=== PATIENT | female | born 1990 | race Two or more races ===

== ENCOUNTER 2020-04-23 08:25 | Inpatient (IN) | payer MEDICAID, SELFPAY ==
[2020-04-23] VITALS (21 sets, daily range): BP systolic 92–123; BP diastolic 54–82; PULSE 84–107; RESP 15–18; TEMP 36.2–37.1; O2SAT 15–100; BMI 29.9
[2020-04-23] MEDS: Lactated Ringers 1,000 ML 999 ML IV (08:40)
[2020-04-23 08:54] LABS: Absolute Neutrophil Count 8.7 X10^3/uL (2.0-7.7); Basophil# 0.04 X10^3/uL; Basophil% 0.4 % (0-1); Eosinophil# 0.05 X10^3/uL; Eosinophils% 0.5 % (0-5); Hemoglobin 11.3 g/dL (12.0-15.0); Lymphocyte % 12.7 % (19-41); Mean Corp Hgb Conc 32.3 g/dL (32-36); Mean Corpuscular Hgb 28.5 pg (27.0-32.0); Mean Corpuscular Volume 88.4 fL (81-99); Mean Platelet Vol. 9.2 fl (6.2-12.0); Monocyte% 6.4 % (0-10); NRBC Flagged by Analyzer 0 % (0-5); Neutrophil # 8.68 X10^3/uL (2.7-7.7); Neutrophil % 78.8 % (47-70); Platelet Count 310 K/mm3 (150-450); RBC Distribution Width CV 13.5 % (11.6-14.6); RBC Distribution Width SD 43.7 fl (35.1-43.9); Red Blood Count 3.96 M/mm3 (4.2-5.4)
--- NOTE | 2020-04-23 09:15 | HP.PCM_ITS ---
History Date of Admission: 04/23/20 Final EMMA: 04/24/20 Final EMMA Source: US <20 weeks Gestational age: 39 Weeks and 6 Days History of this : This is a 29 year-old, avid 2 para 1 who presents at 39-6/7 weeks gestation complaining contractions. She had contractions all night approximately every 7 to 8 minutes. She denies any vaginal bleeding or leaking of fluid. Contractions this morning were every 4 to 5 minutes and some of them were intense enough that she was having trouble walking during them. She arrived to labor and delivery and was found to still be 1 cm. Admits he has been complicated to date by anemia, history of previous section, nausea vomiting of , and history of positive chlamydia test. Surgical history: 1 previous full-term section for true knot in the cord diagnosed antenatally and patient did not undergo labor. This was done elsewhere and records were unable to be obtained but it is likely low transverse and she was a planned . Patient was considering a trial of labor after . Allergies No Known Allergies Allergy (Verified 04/23/20 09:01) Home Medications: Home Medications Ferrous Sulfate [Iron] 325 mg PO 04/23/20 Alcohol: None Number of Fetus(es): 1 NST - FHR Rate Baby A Baseline: normal Variability:: Moderate Accelerations:: 15 x 15 Decelerations:: Late, Variable NST Reactive:: Yes Uterine Activity:: ctxs q 4-6 min History Past Pregnancies: Past Pregnancies Delivery Date Name GA/ Weeks Outcome Route Wt Infant Sex Labor Length Anesthesia Delivery Location Provider FOB Expected Infant Delivery Method: Repeat Section Review of Systems Constitutional: Denies: Chills Eyes: Denies: Blurred vision, Double vision Cardiovascular: Denies: Chest Pain, Edema Respiratory: Denies: Cough, Shortness of Breath Genitourinary: Denies: Dysuria Skin: Denies: Rash Neurological: Denies: Balance problems, Blurred vision, Double vision, Slurred speech Hematologic/ Lymphatic: Reports: Anemia Physical Exam Vitals: Vital Signs Pulse BP 106 H 123/70 H 04/23/20 07:56 04/23/20 07:56 General: Alert, Cooperative, No apparent distress, - - uncomfortable w/ contractions Cardiovascular: Regular rate Lungs: Normal air movement Abdomen: Soft, Non Tender, Non-Distended, Gravid Extremities:: Other - 1+edema Neurological: Cranial nerves II-XII grossly intact, Neuro grossly intact SEROLOGY TECHNICIAN: Normal external genitalia Estimated gestational size: Appropriate for gestational size Presentation: Cephalic Assessment/Plan This is a 29 year-old, 2 para 1 with history of previous section, undocumented previous incision. However, clinically is likely a previous low transverse section. Patient was having some late and variable decelerations upon admission to labor and delivery. She is found to be in very early prodromal labor. Risk benefits and alternatives to trial of labor versus repeat section and possible blood transfusion were discussed with the patient and her . Their questions were answered to their satisfaction and she would like to proceed with section. Consent was signed.
[2020-04-23] MEDS: Sodium Citrate/Citric Acid 30 ML UDC PO (09:20)
[2020-04-23] MEDS: Cefazolin 2 GM in 0.9% Normal Saline 100 ML IV (09:41)
--- NOTE | 2020-04-23 10:28 | PCM.OPRPT ---
Delivery Classification: YUNG Final EMMA: 04/24/20 Final EMMA Source: US <20 weeks Gestational age: 39 Weeks and 6 Days special investigation unit investigator: Sindi Hernandez Type of Anesthesia:: Spinal Special Medications: duramorph Implants Used: none Date of Procedure: 04/23/20 Pre-Operative Diagnosis: labor, 39 weeks, previous c/s, decelerations Post-Operative Diagnosis: same Indications for : Repeat Elective Description of Procedure: The patient was taken to the operating room. She was prepped and draped in the dorsal supine position with a leftward tilt. A Pfannenstiel skin incision was made approximately 2 cm above the symphysis pubis and carried through to underlying layer fascia with the scalpel. The fascia was incised incised in the midline and extended laterally with the Carreno scissors. The fascia was dissected off the rectus muscles with blunt and sharp dissection. The rectus muscles were in the midline and the peritoneum was entered bluntly. The peritoneal incision was stretched and the bladder blade was placed. The uterine incision was made in a low transverse fashion with the scalpel and extended superiorly and inferiorly with blunt dissection. The amniotic membranes were ruptured bluntly and clear amniotic fluid returned. The infant's head was brought to the incision in the flexed position and delivered without difficulty. The remainder of the was delivered with gentle traction and fundal pressure in the standard fashion. The mouth and nares were bulb suctioned. The cord was clamped and cut as the infant was stimulated. Cord clamping was delayed. The infant was handed off to the waiting nursing staff. The placenta was delivered with fundal massage and gentle traction in the standard fashion. The uterus was exteriorized and cleared of all clots and debris. The cervix was dilated with a ring forcep. The uterine incision was closed with #1 Vicryl in a running locked fashion. A second layer of the same suture was used in an imbricating fashion. The incision was examined and was found to be hemostatic. The uterus was placed back into the peritoneal cavity and hemostasis was again confirmed. The rectus muscles were examined and any bleeding was Bovie cauterized. The parietal peritoneum and rectus muscles were closed en bloc with an 0 Vicryl running suture. The surgical teams outer gloves were then changed. The rectus fascia was examined and any bleeding was Bovie cauterized and the rectus fascia was closed with 1 Vicryl suture in a running standard fashion. The subcutaneous tissue was examining and any bleeding was Bovie cauterized. The subcutaneous tissue was reapproximated with 3-0 Vicryl suture. The skin was closed in a subcuticular fashion by the [employer] with me present in the labor and delivery suite. I performed the remainder of the procedure with assistance. All sponge, lap, and needle counts were correct. The patient was taken to her room for recovery in a stable condition. Start time 1001 delivery time 1003 end time 1032 Amniotic Membrane Rupture Type: Artificial Amniotic Fluid Description: Clear Placenta Disposition: [facility] Specimen(s) sent to pathology: none Drain: Young to straight drain Fluids Replaced: 800cc Cord Entanglement: None Cord Vessel Description: 3 Vessels Esitmated Blood Loss (ml): 600 Gender: Male Delayed cord clamping: Yes Antibiotic Given: Ancef 2 grams IV x1 Complications: None - Admit VTE Documentation VTE Present on Admission: No VTE Mechan Device Prophylaxis: SCD's VTE Pharm Prophylaxis ordered?: No Reason prophylaxis not ordered:: Procedure Not Indicated
[2020-04-23] MEDS: Oxytocin 30 units/NS 500 ml 30 UNITS/500 ML IV.SOLN 167 UNITS IV (10:45)
[2020-04-23] MEDS: Ketorolac 30 MG/ML Syringe IV ×3 (11:18→23:58)
[2020-04-23] MEDS: Acetaminophen 500 MG Tablet 1000 MG PO ×2 (12:41→19:00)
[2020-04-23] MEDS: Senna/Docusate Sodium 1 Tablet PO (12:42)
[2020-04-23] MEDS: 0.9% Saline Lock 10 ML Syringe IV ×2 (17:35→23:59)
[2020-04-24] MEDS: Acetaminophen 500 MG Tablet 1000 MG PO ×4 (01:53→19:09)
[2020-04-24] MEDS: 0.9% Saline Lock 10 ML Syringe IV (04:30)
[2020-04-24] MEDS: Ketorolac 30 MG/ML Syringe IV (04:30)
[2020-04-24 04:35] VITALS: BP 111/72; PULSE 85; RESP 18; TEMP 36.1; O2SAT 96
[2020-04-24 04:45] LABS: Hematocrit 33.7 % (37-47); Hemoglobin 10.9 g/dL (12.0-15.0); Mean Corp Hgb Conc 32.3 g/dL (32-36); Mean Corpuscular Hgb 28.9 pg (27.0-32.0); Mean Corpuscular Volume 89.4 fL (81-99); Mean Platelet Vol. 9.3 fl (6.2-12.0); Platelet Count 287 K/mm3 (150-450); RBC Distribution Width CV 13.4 % (11.6-14.6); RBC Distribution Width SD 43.7 fl (35.1-43.9); Red Blood Count 3.77 M/mm3 (4.2-5.4); White Blood Count 10.7 K/mm3 (4.4-11.0)
--- NOTE | 2020-04-24 07:22 | PN.OBGYN_ITS ---
Subjective: pain well controlled, average lochia, no n/v - Physical Exam Vitals/I&O's: Vital Signs Temp Pulse Resp BP Pulse Ox 97 F L 85 18 111/72 96 04/24/20 04:35 04/24/20 04:35 04/24/20 04:35 04/24/20 04:35 04/24/20 04:35 Oxygen Delivery Method Room Air Weight: 79 kg Body Mass Index (BMI) 29.9 Intake and Output for Last 24 Hours 04/22/20 04/23/20 04/24/20 23:59 23:59 23:59 Intake Total 2109 / 2109 Output Total 1750 / 1750 1525 / 1525 Balance 360 / 360 -1525 / -1525 General: Alert, Cooperative, No apparent distress Abdomen: Soft, Distended - moderately, softly, Tender - appropriately Skin: Incision - bandage is clean, dry and intact Microbiology Past 72 Hours 04/23/20 08:40 Mucosa - Nose SARS-CoV-2 Antigen (Rapid) - Final Laboratory Results 04/23/20 08:40: WBC 11.0, RBC 3.96 L, Hgb 11.3 L, Hct 35.0 L, MCV 88.4, MCH 28.5, MCHC 32.3, RDW Std Deviation 43.7, RDW Coeff of Carolin 13.5, Plt Count 310, MPV 9.2, Immature Gran % (Auto) 1.200 H, Neut % (Auto) 78.8 H, Lymph % (Auto) 12.7 L, Christian % (Auto) 6.4, Eos % (Auto) 0.5, Baso % (Auto) 0.4, Absolute Neuts (auto) 8.7 H, Absolute Lymphs (auto) 1.40, Nucleated RBC % 0 04/23/20 08:40: Blood Type A POSITIVE, Antibody Screen NEGATIVE 04/24/20 04:30: WBC 10.7, RBC 3.77 L, Hgb 10.9 L, Hct 33.7 L, MCV 89.4, MCH 28.9, MCHC 32.3, RDW Std Deviation 43.7, RDW Coeff of Carolin 13.4, Plt Count 287, MPV 9.3 Current Medications Acetaminophen (Acetaminophen 500 Mg Tablet) 1,000 mg PO Q6H [facility] Last Admin: 04/24/20 06:48 Dose: 1,000 mg Documented by: Bisacodyl (Bisacodyl 10 Mg Suppository) 10 mg RC UD PRN PRN Reason: If no BM Diphenhydramine HCl (Diphenhydramine 25 Mg Capsule) 25 mg PO Q6H PRN PRN PRN Reason: ITCHING Stop: 04/24/20 10:51 Hydrocortisone (Hydrocortisone 2.5% Crm) 1 applic TOPICAL TID PRN PRN; Protocol PRN Reason: Discomfort Methylergonovine Maleate (Methylergonovine 0.2 Mg/Ml Ampul) 0.2 mg IM X1 PRN PRN Reason: Uterine Atony Nalbuphine HCl (Nalbuphine 10 Mg/Ml Ampul) 5 mg IV Q3H PRN PRN PRN Reason: ITCHING Stop: 04/24/20 10:51 Naloxone HCl (Naloxone 0.4 Mg/Ml Syringe) 0.02 mg IV Q1M PRN PRN Reason: RR <10 and pt unresponsive Naproxen (Naproxen 250 Mg Tablet) 500 mg PO Q8H [facility] Ondansetron HCl (Ondansetron 4 Mg/2 Ml Vial) 4 mg IV Q4H PRN PRN PRN Reason: Nausea Oxycodone HCl (Oxycodone 5 Mg Tablet) 5 - 10 mg PO Q4H PRN PRN PRN Reason: Pain Score 4-10 Prochlorperazine Edisylate (Prochlorperazine 10 Mg/2 Ml Vial) 10 mg IV Q6H PRN PRN PRN Reason: NAUSEA Senna/Docusate Sodium (Senna/Docusate Sodium 1 Tablet) 0 tablet PO DAILY [facility] Last Admin: 04/23/20 12:42 Dose: 2 tablet Documented by: Simethicone (Simethicone 80 Mg Tablet) 80 mg PO PCHS PRN PRN Reason: Indigestion/stomach pain Sodium Chloride (0.9% Saline Lock 10 Ml Syringe) 5 - 15 ml IV UD PRN PRN Reason: SALINE FLUSH Last Admin: 04/24/20 04:30 Dose: 10 ml Documented by: Medical Necessity - Tobacco Use Smoking Status: Never smoker Assessment/Plan POD#1 s/p repeat c/s and doing well likely d/c tomorrow
[2020-04-24 07:51] VITALS: BP 98/63; PULSE 74; RESP 16; TEMP 36.6; O2SAT 96
[2020-04-24] MEDS: Senna/Docusate Sodium 1 Tablet PO (11:02)
[2020-04-24] MEDS: Naproxen 250 MG Tablet 500 MG PO ×2 (11:02→19:06)
[2020-04-24 14:30] VITALS: BP 110/70; PULSE 78; RESP 16; TEMP 36.6
[2020-04-24 20:34] VITALS: BP 114/81; PULSE 85; RESP 16; TEMP 36.6; O2SAT 98
[2020-04-25 01:54] VITALS: BP 115/82; PULSE 84; RESP 18; O2SAT 96
[2020-04-25] MEDS: Acetaminophen 500 MG Tablet 1000 MG PO ×2 (01:57→06:50)
[2020-04-25] MEDS: Naproxen 250 MG Tablet 500 MG PO ×2 (03:06→11:01)
[2020-04-25 07:54] VITALS: BP 108/71; PULSE 76; RESP 16; TEMP 36.4; O2SAT 96
--- NOTE | 2020-04-25 08:18 | PN.OBGYN_ITS ---
Subjective: Patient seen at bedside. infant at this time. Feeling good. Pain is controlled with Motrin and Tylenol PO. Ambulating and voiding without difficulty. Denies any CP, SOB, or dizziness. Objective: hgb 11.3-10.9 - Physical Exam Vitals/I&O's: Vital Signs Temp Pulse Resp BP Pulse Ox 97.6 F L 76 16 108/71 96 04/25/20 07:54 04/25/20 07:54 04/25/20 07:54 04/25/20 07:54 04/25/20 07:54 Oxygen Delivery Method Room Air Weight: 174 lb 2.643 oz Body Mass Index (BMI) 29.9 Intake and Output for Last 24 Hours 04/23/20 04/24/20 04/25/20 23:59 23:59 23:59 Intake Total 2110 / 2110 Output Total 1750 / 1750 2425 / 2425 Balance 360 / 360 -2425 / -2425 General: Alert, Oriented x3, Cooperative HEENT: Atraumatic Oral: Moist Mucosa Neck: Supple Lungs: Normal air movement Cardiovascular: Regular rate Abdomen: Soft, Non Tender, Passing Flatus Extremities: Capillary Refill Less than 3 Seconds Skin: No rashes Neurological: Cranial nerves II-XII grossly intact Psych/Mental Status: Normal Affect Microbiology Past 72 Hours 04/23/20 08:40 Mucosa - Nose SARS-CoV-2 Antigen (Rapid) - Final Current Medications Acetaminophen (Acetaminophen 500 Mg Tablet) 1,000 mg PO Q6H [facility] Last Admin: 04/25/20 06:50 Dose: 1,000 mg Documented by: Bisacodyl (Bisacodyl 10 Mg Suppository) 10 mg RC UD PRN PRN Reason: If no BM Hydrocortisone (Hydrocortisone 2.5% Crm) 1 applic TOPICAL TID PRN PRN; Protocol PRN Reason: Discomfort Methylergonovine Maleate (Methylergonovine 0.2 Mg/Ml Ampul) 0.2 mg IM X1 PRN PRN Reason: Uterine Atony Naloxone HCl (Naloxone 0.4 Mg/Ml Syringe) 0.02 mg IV Q1M PRN PRN Reason: RR <10 and pt unresponsive Naproxen (Naproxen 250 Mg Tablet) 500 mg PO Q8H [facility] Last Admin: 04/25/20 03:06 Dose: 500 mg Documented by: Ondansetron HCl (Ondansetron 4 Mg/2 Ml Vial) 4 mg IV Q4H PRN PRN PRN Reason: Nausea Oxycodone HCl (Oxycodone 5 Mg Tablet) 5 - 10 mg PO Q4H PRN PRN PRN Reason: Pain Score 4-10 Prochlorperazine Edisylate (Prochlorperazine 10 Mg/2 Ml Vial) 10 mg IV Q6H PRN PRN PRN Reason: NAUSEA Senna/Docusate Sodium (Senna/Docusate Sodium 1 Tablet) 0 tablet PO DAILY [facility] Last Admin: 04/24/20 11:02 Dose: 1 tablet Documented by: Simethicone (Simethicone 80 Mg Tablet) 80 mg PO PCHS PRN PRN Reason: Indigestion/stomach pain Sodium Chloride (0.9% Saline Lock 10 Ml Syringe) 5 - 15 ml IV UD PRN PRN Reason: SALINE FLUSH Last Admin: 04/24/20 04:30 Dose: 10 ml Documented by: Medical Necessity - Tobacco Use Smoking Status: Never smoker Assessment/Plan POD #2 Repeat C/S Pain control Routine care support Desires discharge home today
--- NOTE | 2020-04-25 08:23 | DCINST_ITS ---
Discharge Diet: No Restrictions Discharge Activity: May Not Drive - 2 weeks May resume sexual activity in: 6-8 weeks Additional Instructions: If you experience any of the following, contact your healthcare provider. * Bleeding that soaks a pad every hour for 2 hours * Fever 100.4 or higher * Unrelieved incision or abdominal pain * Swelling, redness, discharge or bleeding from your incision or episiotomy site * Your incision begins to separate * Problems urinating (including inability to urinate or burning while urinating). * Visual changes * Severe headache * Flu-like symptoms * Pain or redness in one of both of your breasts * Pain, warmth, tenderness or swelling in your legs, especially the calf area * Frequent nausea and vomiting * Symptoms of depression or anxiety If you experience any of the following, call 911 or go to the nearest Emergency Room. * Chest pain * Problems breathing * Seizure activity * Partial or complete paralysis of a body part, slurred speech, weakness or drooping of the face, or a sudden inability to walk or hold your balance Allergies/Adverse Reactions: Allergies No Known Allergies Allergy (Verified 04/23/20 09:01) Follow-Up: Call to make an appointment with your doctor for an incision check in 1-2 weeks. You will also need a 6 week post- follow up appointment. Test results from this visit will be discussed in further detail at your follow- up appointment, if applicable. Primary Care Physician: Care Physician,No Primary [Primary Care Provider] -
--- NOTE | 2020-04-25 08:23 | PCM.DCCSEC ---
Discharge Diet: No Restrictions Discharge Activity: May Not Drive - 2 weeks May resume sexual activity in: 6-8 weeks Additional Instructions: If you experience any of the following, contact your healthcare provider. Bleeding that soaks a pad every hour for 2 hours Fever 100.4 or higher Unrelieved incision or abdominal pain Swelling, redness, discharge or bleeding from your incision or episiotomy site Your incision begins to separate Problems urinating (including inability to urinate or burning while urinating). Visual changes Severe headache Flu-like symptoms Pain or redness in one of both of your breasts Pain, warmth, tenderness or swelling in your legs, especially the calf area Frequent nausea and vomiting Symptoms of depression or anxiety If you experience any of the following, call 911 or go to the nearest Emergency Room. Chest pain Problems breathing Seizure activity Partial or complete paralysis of a body part, slurred speech, weakness or drooping of the face, or a sudden inability to walk or hold your balance Allergies/Adverse Reactions: Allergies No Known Allergies Allergy (Verified 04/23/20 09:01) Follow-Up: Call to make an appointment with your doctor for an incision check in 1-2 weeks. You will also need a 6 week post- follow up appointment. Test results from this visit will be discussed in further detail at your follow-up appointment, if applicable. Primary Care Physician: Care Physician,No Primary [Primary Care Provider] -
--- NOTE | 2020-04-25 08:24 | DS.PCM_ITS ---
Discharge Date and Diagnosis Date of Admission: 04/23/20 Date of Discharge: 04/25/20 Hospital Course and Treatment Consultations 04/23/20 08:24 Consult: Anesthesia Routine Comment: Reason For Exam: Labor Summary of Care Provided: The patient is a 29 year old F [ with repeat section. Hospital course was uneventful.] - Physical Exam Vitals/I&O's: Vital Signs Temp Pulse Resp BP Pulse Ox 97.6 F L 76 16 108/71 96 04/25/20 07:54 04/25/20 07:54 04/25/20 07:54 04/25/20 07:54 04/25/20 07:54 Oxygen Delivery Method Room Air Weight: 174 lb 2.643 oz Body Mass Index (BMI) 29.9 Intake and Output for Last 24 Hours 04/23/20 04/24/20 04/25/20 23:59 23:59 23:59 Intake Total 2110 / 2110 Output Total 1750 / 1750 2425 / 2425 Balance 360 / 360 -2425 / -2425 Microbiology Past 72 Hours 04/23/20 08:40 Mucosa - Nose SARS-CoV-2 Antigen (Rapid) - Final Current Medications Acetaminophen (Acetaminophen 500 Mg Tablet) 1,000 mg PO Q6H [facility] Last Admin: 04/25/20 06:50 Dose: 1,000 mg Documented by: Bisacodyl (Bisacodyl 10 Mg Suppository) 10 mg RC UD PRN PRN Reason: If no BM Hydrocortisone (Hydrocortisone 2.5% Crm) 1 applic TOPICAL TID PRN PRN; Protocol PRN Reason: Discomfort Methylergonovine Maleate (Methylergonovine 0.2 Mg/Ml Ampul) 0.2 mg IM X1 PRN PRN Reason: Uterine Atony Naloxone HCl (Naloxone 0.4 Mg/Ml Syringe) 0.02 mg IV Q1M PRN PRN Reason: RR <10 and pt unresponsive Naproxen (Naproxen 250 Mg Tablet) 500 mg PO Q8H [facility] Last Admin: 04/25/20 03:06 Dose: 500 mg Documented by: Ondansetron HCl (Ondansetron 4 Mg/2 Ml Vial) 4 mg IV Q4H PRN PRN PRN Reason: Nausea Oxycodone HCl (Oxycodone 5 Mg Tablet) 5 - 10 mg PO Q4H PRN PRN PRN Reason: Pain Score 4-10 Prochlorperazine Edisylate (Prochlorperazine 10 Mg/2 Ml Vial) 10 mg IV Q6H PRN PRN PRN Reason: NAUSEA Senna/Docusate Sodium (Senna/Docusate Sodium 1 Tablet) 0 tablet PO DAILY [facility] Last Admin: 04/24/20 11:02 Dose: 1 tablet Documented by: Simethicone (Simethicone 80 Mg Tablet) 80 mg PO PCHS PRN PRN Reason: Indigestion/stomach pain Sodium Chloride (0.9% Saline Lock 10 Ml Syringe) 5 - 15 ml IV UD PRN PRN Reason: SALINE FLUSH Last Admin: 04/24/20 04:30 Dose: 10 ml Documented by: Discharge Diet: No Restrictions Discharge Activity: May Not Drive - 2 weeks May resume sexual activity in: 6-8 weeks Primary Care Physician: Care Physician,No Primary [Primary Care Provider] - Medical Necessity - Tobacco Use Smoking Status: Never smoker Meaningful Use Info Meaningful Use Diagnoses (Choose all that apply): None applicable
[2020-04-25] MEDS: Senna/Docusate Sodium 1 Tablet PO (11:01)
[2020-04-25 12:00] VITALS: BP 115/78; PULSE 80; RESP 16; TEMP 36.4; O2SAT 97
[2020-04-25 13:29] VITALS: BP 115/78; PULSE 80; RESP 16; TEMP 36.4; O2SAT 97
== END 2020-04-25 13:20 | disposition home or self-care (01) | DRG 540 ==
LOC: WPOUT 08:28 → WP 08:28
PROVIDERS: Admitting Provider Obstetrics & Gynecology; Referring Provider Obstetrics & Gynecology; Visit Provider Obstetrics & Gynecology
DX: O65.5 Obstructed labor due to abnormality of maternal pelvic organs (principal); O34.211 Maternal care for low transverse scar from previous cesarean delivery; O76 Abnormality in fetal heart rate and rhythm complicating labor and delivery; Z3A.39 39 weeks gestation of pregnancy; Z37.0 Single live birth
CPT/HCPCS: 85025; 85027; 86850; 86900; 86901; 87426; 99218; 99251; J7120; A4216; G0378; G0463